=== PATIENT | male | born 1945 | race Caucasian/White ===

== ENCOUNTER → 2019-04-13 | Outpatient (CLI) | payer OTHER | END | disposition home or self-care (01) | LOC: LABWHC1 11:51 | PROVIDERS: ATTEND Orthopaedic Surgery | DX: Z01.812 Encounter for preprocedural laboratory examination (principal) | CPT/HCPCS: 87070 ==

== ENCOUNTER 2019-05-12 12:01 | Observation (INO) | payer OTHER ==
--- NOTE | 2019-05-09 10:25 | HP ---
HISTORY AND PHYSICAL CHIEF COMPLAINT: Right knee pain. HISTORY OF PRESENT ILLNESS: The patient is a 74-year-old retired male who presents with progressive right knee pain over the past 4 years. It has worsened recently. He is having diffuse pain with weightbearing activities and at night. He notes it limits him significantly. He has tried medications along with activity modifications without much relief. PAST MEDICAL HISTORY: Significant for arthritis, hypertension, and hypothyroidism along with polycystic kidney disease. PAST SURGICAL HISTORY: Significant for hernia repair in addition to a left total knee arthroplasty. CURRENT MEDICATIONS: 1. Levothyroxine. 2. Flomax. 3. Lisinopril. ALLERGIES: He has allergies to CARDIZEM. FAMILY HISTORY: Significant for heart disease. SOCIAL HISTORY: Significant for previous tobacco use, however, he quit in 1979. REVIEW OF SYSTEMS: Sixteen-point review of systems otherwise reviewed and is noncontributory. PHYSICAL EXAMINATION: On examination, the patient is approximately 5 feet, 11 inches, 210 pounds of mesomorphic habitus. HEENT exam is nonfocal. NECK: Supple. He has painless passive motion of the right hip. Straight leg raise is negative. Active motion right knee -12 to 125 degrees of flexion. He has tenderness about the medial joint line. He has trace effusion. Collaterals are stable, Davina's negative, Kate's is equivocal. He has genu varum alignment. His distal neurovascular exam appears intact in the right lower extremity. Weightbearing notch lateral and Merchant views of the right knee obtained in the office show severe medial and patellofemoral compartment narrowing. IMPRESSION: 1. Right knee severe medial and patellofemoral compartment osteoarthrosis. 2. Polycystic kidney disease. RECOMMENDATION: I talked to the patient at length regarding his condition and treatment options. At this point, he is quite symptomatic and opts to proceed with surgery. We will plan to proceed with right total knee arthroplasty. Risks and benefits were discussed at length in layman's terms. We will institute DVT prophylaxis postoperatively. MMODL / IJN: [id number] /
[~2019-05-12 12:01] MED LIST: ACETAMINOPHEN TAB 500 MG TAB PO ONE; DEXAMETHASONE SOD PHOSPHATE 10 MG/ML 1 ML VIAL IV ONE; LIDOCAINE 1% 20 ML VIAL (10MG/ML) FOR IV START INTRADERMA PRN; MELOXICAM 7.5 MG TAB PO ONE; MIDAZOLAM 2 MG/2 ML VIAL IV PRN; ONDANSETRON 4 MG/2 ML VIAL IVP ONE; SCOPOLAMINE 1.5MG/72HR PATCH TRANSDERM ONE; TRANEXAMIC ACID 1,000 MG in SODIUM CHLORIDE 0.9% 100 ML IVPB ONE
[2019-05-12] MEDS ORDERED: ROPIVACAINE 246.25 MG, EPINEPHrine 0.5 MG, KETOROLAC 30 MG, cloNIDine HCL/PF 80 MCG, WA... MISCELLANE ONE ×5 (12:25)
[2019-05-12] MEDS: LACTATED RINGERS 1,000 ML IV SCH (12:28)
[2019-05-12] MEDS ORDERED: fentaNYL (PF) 50 MCG/ML 2 ML AMP IV ONE (12:48)
[2019-05-12] MEDS ORDERED: SODIUM CHLORIDE 0.9% 100 ML BAG ONE (13:08)
[2019-05-12] MEDS ORDERED: ePHEDrine SULFATE/0.9% NACL/PF 50 MG/5 ML SYRINGE IV ONE (13:08)
[2019-05-12] MEDS ORDERED: LIDOCAINE 1% INJ 10MG/ML (20 ML MDV) ONE (13:08)
[2019-05-12] MEDS ORDERED: fentaNYL (PF) 50 MCG/ML 2 ML AMP ONE (13:08)
[2019-05-12] MEDS ORDERED: TRANEXAMIC ACID 1,000 MG/10 ML VIAL ONE (13:08)
[2019-05-12] MEDS ORDERED: PROPOFOL 10 MG/ML 20 ML VIAL IV ONE (13:08)
[2019-05-12] MEDS ORDERED: MIDAZOLAM 2 MG/2 ML VIAL ONE (13:08)
[2019-05-12] MEDS ORDERED: ROPIVACAINE 0.2%-NS ON-Q PUMP 1,090 MG, EMPTY PAIN BALL 1 EACH MISCELLANE PRN (13:22)
[2019-05-12] MEDS ORDERED: ceFAZolin 3,000 MG in SODIUM CHLORIDE 0.9% IRRIGATIO 3,000 ML IRRIGATION ONE (13:45)
[2019-05-12] MEDS ORDERED: LACTATED RINGERS 1,000 ML IV ONE (13:57)
--- NOTE | 2019-05-12 14:10 | P.ANPRN ---
Procedure Note - Anesthesia - Nerve Block Performed Right Adductor Canal Infusion Time Out Performed: Yes (1247) Date of Procedure: 05/12/19 Procedure Start Time: 12:47 Procedure Stop Time: 12:54 Location of Patient: PreOp Indication: Acute Post-Operative Pain, Requested by Surgeon Specifically requested for management of pain by : Phan Dunn Sedation Type: Sedate with meaningful contact maintained Preparation: Sterile Prep Position: Supine Catheter Depth at Skin (cm): 7 Catheter: Indwelling Needle Types: Pajunk Needle Gauge: 20 Ultrasound used to visualize needle placement: Yes Ultrasound used to observe medication spread: Yes Injectate: 0.5% Ropivacaine (see comment for volume) (20cc) Blood Aspirated: No Pain Paresthesia on Injection Noted: No Resistance on Injection: Normal Image Stored and Saved: Yes Events: Uneventful and Well Tolerated
[2019-05-12] MEDS ORDERED: HYDROmorphone 0.5 MG/0.5 ML SYRINGE IVP PRN (15:05)
[2019-05-12] MEDS ORDERED: ONDANSETRON 4 MG/2 ML VIAL IVP PRN (15:05)
[2019-05-12] MEDS ORDERED: NALOXONE 0.4 MG/ML 1 ML VIAL IV PRN (15:05)
[2019-05-12] MEDS ORDERED: ACETAMINOPHEN TAB 325 MG TAB PO PRN (15:05)
[2019-05-12] MEDS ORDERED: MAGNESIUM HYDROXIDE 2,400 MG/10 ML CUP PO PRN (15:05)
[2019-05-12] MEDS ORDERED: traMADol 50 MG TAB PO PRN (15:05)
--- NOTE | 2019-05-12 15:33 | P.OP ---
Date of Procedure: 05/12/19 Preoperative Diagnosis: Right knee severe tricompartmental osteoarthrosis Postoperative Diagnosis: Same Procedure(s) Performed: Right total knee are flaccidcementedcruciate retaining Implants: Depuy Attune size 8 cemented femoral component, size 7 cemented tibial component, 9 mm articular surface, 38 mm cemented patellar component. This is a cruciate retaining implant. Anesthesia: regional, local, spinal Surgeon: Phan Dunn Cleaner Assistant #1: Connor Klein Estimated Blood Loss (ml): 50 Pathology: other (Bone fragments) Condition: stable Disposition: PACU Indications for Procedure: The patient's a 74-year-old male who presents with progressive right knee pain secondary to osteoarthrosis despite conservative measures. A discussion of the risks and benefits of operative intervention versus continued conservative me asures was made with patient. He opted to proceed with surgery. Operative risks to include infection, neurovascular injury, development of blood clots, possible fracture, possible component loosening and failure need for subsequent procedures was discussed. Informed consent was obtained. Operative Findings: As below Description of Procedure: The patient was brought to the operating room, and after induction of spinal anesthesia the right lower extremity was prepped and draped in a normal fashion. The tourniquet was inflated to 270 mmHg. A longitudinal incision extending 3 finger breaths above the superior pole of the patella extending to the medial aspect the tibial tubercle was then made. The skin and subcutaneous tissues we re divided sharply. Electrocautery was used for hemostasis. A medial parapatellar arthrotomy was then performed. The medial soft tissues to include the superficial and deep portions of the medial collateral ligament as well as the medial hamstring tendons were elevated subperiosteally. The proximal medial tibia osteophytes were carefully removed. The patella was everted. The knee was flexed. A portion of the retropatellar fat pad was excised sharply. The anterior cruciate ligament was sacrificed. A starting hole was made in the distal femur 1 cm anterior to the posterior cruciate origin. An intramedullary femoral guide was gently inserted planning on 5 valgus distal cut with 9 mm distal resection. The cutting block was pinned in place. The distal cut was then made. The posterior referencing sizing guide was utilized. 3 of external rotation was built into the system and verified off the trans- epicondylar axis and the posterior condyles. I felt size 8 was most appropri ate. The cutting block was pinned in place. The anterior, posterior, and chamfer cuts were then made. The bone fragments were removed. A sulcus cut was then made with the appropriate guide. The trial size 8 femoral component was then placed and was fully seated. There was good anterior to posterior and medial to lateral fit. The distal peg holes were then drilled. The trial component was then removed. Attention was then paid towards preparing the proximal tibia. An extra medullary guide was utilized in line with the tibial shaft and second metatarsal distally. A 7 posterior slope was planned. I planned on 2 mm resection from the medial compartment. The cutting block was pinned in place. The proximal tibial cut was then made. The bone was removed in one fragment. The remnants of the medial and lateral menisci were excised the capsule junction with electrocautery. The tibia sized most appropriately at size 7. The resection seemed inadequate and therefore an additional 4 mm was resected utilizing the cutting block. The posterior osteophytes off the distal femur were carefully removed with a curved osteotome. The trial tibial and femoral components were placed along with a 9 millimeters articular surface. I was able to obtain full flexion and extension with good stability with varus and valgus stress. After several flexion and extension cycles, the tibial rotation was marked with electrocautery in line with the medial one third of the tibial tubercle. Attention was then paid towards preparing the patella. A patella reamer was utilized taking this down to 14 mm of bone stock. A good flush cut was made. The patella sized most appropriately at 38 millimeters. The peg holes were then drilled. The trial component was placed. The knee was taken through a range of motion. I had good patellofemoral tracking with no hands technique. The trial components were then removed. The tibia was prepared in the appropriate rotation with appropriate drill and keel punch. The flexion and extension gaps were checked and felt to be symmetric. The posterior soft tissues were injected with ropivacaine. The bony surfaces were prepared with pulsatile lavage and dried. The deep tibial component was then cemented in place and was fully seated. Excess cement was removed. The femoral component was cemented in place and was fully seated. Again excess cement was removed. The trial 9 millimeters surface was then inserted in the knee was put in full extension. The patella component was cemented in place. After the cement had sufficiently hardened, the knee was again taken through a range of motion. Again there was good stability in flexion and extension with varus and valgus stress. The trial articular surface was then removed. The final articular surface was placed and was impacted. Care was taken to avoid any soft tissue interposition. Pulsatile lavage was again utilized. The tourniquet was deflated with approximately 75 minutes total tourniquet time. There was minimal drainage therefore a deep drain was not placed. The medial parapatellar arthrotomy was then closed with #2 Ethibond suture. The subcutaneous tissues were reapproximated interrupted 2-0 Vicryl sutures. The skin was reapproximated with 3-0 subarticular strata fix suture. Skin tape and adhesive was applied. A sterile dressing was applied. The patient was then awoken from sedation and transferred to recovery room in good condition. Blood loss was estimated at 50 milliliters. No complications were incurred. Sponge and needle counts were correct at the end the case. Tahir LARA assisted during the major components this case to include exposure, bone resection, and implantation.
[2019-05-12] MEDS: HYDROmorphone 0.5 MG/0.5 ML SYRINGE IVP PRN ×2 (15:59→16:09)
[2019-05-12] MEDS ORDERED: diphenhydrAMINE 50 MG/ML 1 ML VIAL IVP ONE (16:00)
--- NOTE | 2019-05-12 16:00 | XR ---
EXAMINATION TYPE: XR knee limited RT DATE OF EXAM: 05/12/2019 COMPARISON: NONE TECHNIQUE: Two views submitted HISTORY: Post op FINDINGS: There is a prosthetic knee in near anatomic alignment. There is soft tissue edema and emphysema. Co rtical thickening suggestive previous trauma involving the fibula with heterotopic ossification. IMPRESSION: 1. Postoperative change. Appears in near-anatomic alignment
--- NOTE | 2019-05-12 17:02 | P.CONS ---
History of Present Illness - Reason for Consult Consult date: 05/12/19 - History of Present Illness The patient is a 74-year-old male with a PMH of osteoarthritis, hypertension, hypothyroidism, and BPH who was admitted to the hospital for scheduled right knee arthroplasty. The patient underwent the procedure uneventfully earlier today and was seen postoperatively on the surgical unit with at the bedside. The patient reported his pain in the right knee currently at a 6 out of 10. He denied any additional complaints. He noted compliance with his home medications. Denied chest pain, shortness of breath, nausea, vomiting, fever, and chills. Review of Systems Pertinent positives and negatives as discussed in HPI, a complete review of systems was performed and all other systems are negative. Past Medical History Past Medical History: Cancer, Hypertension, Osteoarthritis (OA), Renal Disease, Skin Disorder, Thyroid Disorder Additional Past Medical History / Comment(s): autoimmune disease-no sure what, dry skin, polycystic kidney disease, hx skin cancer History of Any Multi-Drug Resistant Organisms: None Reported Past Surgical History: Hernia Repair, Joint Replacement, Tonsillectomy Additional Past Surgical History / Comment(s): skin cancer removed from face, surgery on rt index finger for laceration, left knee replacement, left knee arthroscopy Past Anesthesia/Blood Transfusion Reactions: No Reported Reaction Past Psychological History: No Psychological Hx Reported Smoking Status: Never smoker Past Alcohol Use History: None Reported Additional Past Alcohol Use History / Comment(s): quit smoking around age 32, smoked for a "few years" Past Drug Use History: None Reported - Past Family History Mother Family Medical History: No Reported History Medications and Allergies Home Medications Medication Instructions Recorded Confirmed Type Acetaminophen Tab [Tylenol Tab] 500 mg PO Q6H PRN 05/07/19 05/12/19 History Cyanocobalamin (Vitamin B-12) 1,000 mcg PO DAILY 05/07/19 05/12/19 History [Vitamin B-12] Levothyroxine Sodium [Synthroid] 112 mcg PO DAILY 05/07/19 05/12/19 History Lisinopril 40 mg PO DAILY 05/07/19 05/12/19 History Tamsulosin [Flomax] 0.4 mg PO HS 05/07/19 05/12/19 History Allergies Allergy/AdvReac Type Severity Reaction Status Date / Time diltiazem [From Cardizem] Allergy Rash/Hives Verified 05/12/19 12:14 Physical Exam Vitals: Vital Signs Temp Pulse Resp BP Pulse Ox 05/12/19 16:16 81 16 134/71 92 L 05/12/19 16:01 82 16 136/73 94 L 05/12/19 15:45 86 16 110/58 95 05/12/19 15:29 97.5 F L 92 14 121/60 98 05/12/19 12:26 98.2 F 71 16 159/89 98 Intake and Output 05/12/19 05/12/19 05/12/19 06:59 14:59 22:59 Intake Total 1851 250 Output Total 100 Balance 1851 150 Intake: IV 1851 250 Output: Estimated Blood Loss 100 Other: Weight 95.1 kg 95.1 kg General: non toxic, no distress, appears at stated age, overweight Derm: no unusual rashes/lesions no unusual ecchymoses, warm, dry Head: atraumatic, normocephalic, symmetric Eyes: EOMI, no lid lag, anicteric sclera, pupils equal round reactive to light ENT: Nose and ears atraumatic, no thrush, no pharyngeal erythema Neck: No thyromegaly, no cervical lymphadenopathy, trachea midline, supple Mouth: no lip lesion, mucus membranes moist Cardiovascular: S1S2 reg, no murmur, positive posterior tibial pulse bilateral, no edema, capillary refill less than 2 seconds Lungs: CTA bilateral, no rhonchi, no rales , no accessory muscle use Abdominal: soft, nontender to palpation, no guarding, no appreciable organomegaly, normal bowel sounds Ext: no gross muscle atrophy, muscle strength 5 out of 5 in all 4 extremities except RLE due to pain, no contractures, RLE DORI bandage in place Neuro: CN II-XI grossly intact, light touch intact all 4 extremities, finger to nose within normal limits, Psych: Alert, oriented, appropriate affect Assessment and Plan Plan: HTN -C/w home meds: Lisinopril 40 mg qd Hypothyroidism -Continue with levothyroxine BPH -Continue with home med Flomax Status post right total knee arthroplasty -Management including pain control and DVT prophylaxis as per surgery service
[2019-05-12] MEDS: SENNOSIDES-DOCUSATE SODIUM 1 EACH TAB PO SCH (20:52)
[2019-05-13] MEDS: LACTATED RINGERS 1,000 ML IV SCH (06:54)
[2019-05-13 07:02] LABS: Basophils % (A) 0 %; Eosinophils % (A) 1 %; HCT 40.2 % (39.0-53.0); HGB 12.6 gm/dL (13.0-17.5); Lymphocytes # (A) 0.9 k/uL (1.0-4.8); Lymphocytes % (A) 10 %; MCH 30.3 pg (25.0-35.0); MCHC 31.3 g/dL (31.0-37.0); MCV 96.7 fL (80.0-100.0); Mean Platelet Volume 7.7; Monocytes # (A) 0.5 k/uL (0-1.0); Monocytes % (A) 6 %; Neutrophils # (A) 7.4 k/uL (1.3-7.7); Neutrophils % (A) 83 %; Platelet Count 148 k/uL (150-450); RBC 4.16 m/uL (4.30-5.90); RDW 12.9 % (11.5-15.5); WBC 8.9 k/uL (3.8-10.6)
[2019-05-13] MEDS: HYDROcodone/APAP 5-325MG 1 EACH TAB PO PRN ×3 (08:55→19:49)
[2019-05-13] MEDS ORDERED: RIVAROXABAN 10 MG TAB PO SCH (09:00)
--- NOTE | 2019-05-13 09:59 | P.PN ---
Subjective Progress Note Date: 05/13/19 Patient was seen and examined at the bedside on 05/13. He reported good control of the pain throughout the night though did endorse 4 out of 10 pain at the time of interview. He was able to ambulate to the restroom and has been passing urine. He denied any additional complaints. Denied chest pain, shortness of breath, fever, chills, nausea, vomiting, or abdominal pain. Objective - Vital Signs Vital signs: Vital Signs Temp 97.8 F 05/13/19 07:00 Pulse 84 05/13/19 07:00 Resp 18 05/13/19 07:00 BP 121/70 05/13/19 07:00 Pulse Ox 96 05/13/19 07:00 Intake & Output 05/12/19 05/13/19 05/13/19 18:59 06:59 18:59 Intake Total 2101 250 Output Total 100 Balance 2000 250 Weight 95.1 kg Intake: IV 2100 Intake, IV Titration 250 Amount Lactated Ringers 1,000 ml 100 @ 0 mls/hr IV .[facility] Rx#:[id number] Lactated Ringers 1,000 ml 150 @ 20 mls/hr IV .Q24H COUNT INCLUDES THE [facility] Rx#:[id number] Output: Estimated Blood Loss 100 Other: Voiding Method Toilet - Exam General: Non-toxic, in no acute distress, appears stated age, overweight HEENT: NC/AT, anicteric sclerae, moist conjunctiva, no lid-lag, PERRLA Cardiovascular: S1/S2 wnl, no murmurs, rubs, or gallops Lungs: Clear to auscultation, normal respiratory effort, no accessory muscle use Abdominal: Soft, non-tender, non-distended, no guarding, rebound, or rigidity Skin: Warm, dry Extremities: Right lower extremity Maury bandage in place from ankle to thigh, clean Psychiatric: Alert and oriented to person, place and time, appropriate affect Neuro: CN II-XII grossly intact, Strength 5/5 in all 4 extremities except right lower extremity since postsurgical, Speech intact, Sensation to light touch grossly intact throughout - Labs CBC & Chem 7: 05/13/19 06:12 Labs: Abnormal Lab Results - Last 24 Hours (Table) 05/13/19 Range/Units 06:12 RBC 4.16 L (4.30-5.90) m/uL Hgb 12.6 L (13.0-17.5) gm/dL Plt Count 148 L (150-450) k/uL Lymphocytes # 0.9 L (1.0-4.8) k/uL Assessment and Plan Plan: Normocytic anemia -As expected following surgery Mild thrombocytopenia -Likely due to acute stress HTN -C/w home meds: Lisinopril 40 mg qd Hypothyroidism -Continue with levothyroxine BPH -Continue with home med Flomax Status post right total knee arthroplasty -Management including pain control and DVT prophylaxis as per surgery service
--- NOTE | 2019-05-13 10:35 | P.PN ---
Subjective Progress Note Date: 05/13/19 Principal diagnosis: Status post right total knee arthroplasty patient evaluated bedside, he is resting comfortably. She's ambulated well with physical therapy. His pain is well-controlled. Currently denies any chest pain, shortness of breath, fever or chills, stomach discomfort. Objective - Vital Signs Vital signs: Vital Signs Temp 97.8 F 05/13/19 07:00 Pulse 84 05/13/19 07:00 Resp 18 05/13/19 07:00 BP 121/70 05/13/19 07:00 Pulse Ox 96 05/13/19 07:00 Intake & Output 05/12/19 05/13/19 05/13/19 18:59 06:59 18:59 Intake Total 2101 250 Output Total 100 Balance 2000 250 Weight 95.1 kg Intake: IV 2100 Intake, IV Titration 250 Amount Lactated Ringers 1,000 ml 100 @ 0 mls/hr IV .[facility] Rx#:[id number] Lactated Ringers 1,000 ml 150 @ 20 mls/hr IV .Q24H [facility] Rx#:[id number] Output: Estimated Blood Loss 100 Other: Voiding Method Toilet - Exam Right lower extremity: Incision is clean, dry, and intact. The exofin fusion tape is in good condition. There is minimal soft tissue swelling and ecchymosis surrounding the medial and lateral aspects of the incision. Calf is soft, no tenderness with palpation. Plantar flexion, dorsiflexion, EHL, FHL are intact. Sensory exam to light touch throughout the extremity is intact, dorsal pedis pulses 2+. - Labs CBC & Chem 7: 05/13/19 06:12 Labs: Abnormal Lab Results - Last 24 Hours (Table) 05/13/19 Range/Units 06:12 RBC 4.16 L (4.30-5.90) m/uL Hgb 12.6 L (13.0-17.5) gm/dL Plt Count 148 L (150-450) k/uL Lymphocytes # 0.9 L (1.0-4.8) k/uL Assessment and Plan Plan: Assessment: Postop day #1 status post right total knee arthroplasty Plan: Pain control, plan for discharge on oral medication GI and DVT prophylaxis, Eliquis 2.5mg bid Wound care instructions discussed Icing and elevating techniques along with home exercises discussed Home therapy and nursing after discharge Medical recommendations Discharge planning: Discharge home today Time with Patient: Less than 30
--- NOTE | 2019-05-13 10:37 | P.DS ---
Providers Date of admission: 05/12/2019 Expected date of discharge: 05/13/19 Attending physician: hPan Dunn Consults: 05/12/19 15:07 Consult Physician Routine Consulting Provider: Vaishnavi Rome Consult Reason/Comments: Medical Management Do you want consulting provider notified?: Yes Primary care physician: [facility] Hospital Course: Date of admission: 05/12/2019 Date of discharge: 05/13/2019 Admission diagnosis: Status post right total knee arthroplasty Discharge diagnosis: Same Attending physician: Dr. Dunn Surgical procedures: Right total knee arthroplasty Brief history: Patient is a 74-year-old male with a history of progressive primary right knee osteoarthritis. At this point patient has failed conservative treatment measures and has opted to proceed with a elective right total knee arthroplasty. Hospital course: Details of patient's surgery can be found in operative report. Patient tolerated the procedure well and was subsequently transported to orthopedic floor. Patient's orthopeidc and medical care was provided daily. Patient had daily laboratory tests performed for evaluation of overall blood counts. Patient had daily physical therapy to include strengthening range of motion as well as education with walker ambulation. Patient had daily CPM usage as part of their physical therapy program. Patient was treated with Xarelto for their postoperative DVT prophylaxis during their inpatient stay. Patient was noted to have a relatively uneventful postoperative course. Patient reported satisfactory pain control with oral pain medications by postoperative day 0. Patient showed satisfactory progress with physical therapy. Patient moved steadily through the program and had no difficulty meeting the goals by postoperative day 1. Given patient's otherwise satisfactory course and having met physical therapy goals, plan is to discharge patient home on postoperative day 1. Discharge condition/disposition: Patient will be discharged home in stable condition. Discharge medications: Instructions are given on resumption of patient's normal daily medications per primary care recommendation, in addition patient will be prescribed Vidor 5 mg/325 mg, Colace 100 mg, Eliquis 2.5mg. Discharge instructions: 1. Wound care and infection precautions, keep incision dry and covered while showering, no lotions, creams, moisturizers. No soaking, tubs, pools, hottubs. Do not scrub over the incision. 2. Weight-bear as tolerated with walker / cane until follow-up. 3. Ice and elevate when necessary. Do not exceed 20 minutes per hour with ice pack. 4. Utilize compression sleeve until seen at first follow up appointment. 5. Visiting nursing care. 6. Home physical therapy. 7. Pain meds and anticoagulants per prescription. 8. Pain medication has potential to cause constipation. Increase oral fluid and fiber intake. Contact primary care provider if you have not had a bowel movement within 48 hours after discharge 9. No anti-inflammatory medication until discussed at first post operative visit, this including Motrin, Aleve, Mobic, Diclofenac. 10. Follow up in office at 2 weeks postop with Tahir Klein PA-C 11. Follow up with your primary care doctor 7-10 days after discharge. 12. Contact [facility] with any questions, . Procedures: Right total knee arthroplasty Patient Condition at Discharge: Good Plan - Discharge Summary Discharge Rx Participant: No New Discharge Prescriptions: New Docusate [Colace] 100 mg PO DAILY #30 capsule Apixaban [Eliquis] 2.5 mg PO BID #60 tab Hydrocodone/Acetaminophen [Vidor 5-325] 1 - 2 each PO Q6HR PRN #40 tab PRN Reason: Pain No Action Tamsulosin [Flomax] 0.4 mg PO HS Acetaminophen Tab [Tylenol Tab] 500 mg PO Q6H PRN PRN Reason: Pain Lisinopril 40 mg PO DAILY Levothyroxine Sodium [Synthroid] 112 mcg PO DAILY Cyanocobalamin (Vitamin B-12) [Vitamin B-12] 1,000 mcg PO DAILY Discharge Medication List Acetaminophen Tab [Tylenol Tab] 500 mg PO Q6H PRN 05/07/19 [History] Cyanocobalamin (Vitamin B-12) [Vitamin B-12] 1,000 mcg PO DAILY 05/07/19 [History] Levothyroxine Sodium [Synthroid] 112 mcg PO DAILY 05/07/19 [History] Lisinopril 40 mg PO DAILY 05/07/19 [History] Tamsulosin [Flomax] 0.4 mg PO HS 05/07/19 [History] Apixaban [Eliquis] 2.5 mg PO BID #60 tab 05/13/19 [Rx] Docusate [Colace] 100 mg PO DAILY #30 capsule 05/13/19 [Rx] Hydrocodone/Acetaminophen [Vidor 5-325] 1 - 2 each PO Q6HR PRN #40 tab 05/13/19 [Rx] Follow up Appointment(s)/Referral(s): Connor Klein, PAC [PHYSICIAN [employer]] - 05/27/19 2:50 pm [facility] [Primary Care Provider] - 1 Week Activity/Diet/Wound Care/Special Instructions: Orthopedic Discharge Instructions: 1. Wound care and infection precautions, keep incision dry and covered while showering, no lotions, creams, moisturizers. No soaking, pools, hot tubs. Do not scrub over incision. 2. Weight-bear as tolerated with walker / cane until follow-up. 3. Ice and elevate when necessary. Do not exceed 20 minutes per hour with ice pack. 4. Utilize compression sleeve until seen at first follow up appointment. 5. Pain meds and anticoagulants per prescription. 6. Pain medication has potential to cause constipation. Increase oral fluid and fiber intake. Contact primary care provider if you have not had a bowel movement within 48 hours after discharge. 7. No anti-inflammatory medication until discussed at first post operative visit, this including Motrin, Aleve, Mobic, Diclofenac. 8. Follow up in office at 2 weeks postop with Tahir Klein PA-C 9. Follow up with your primary care doctor 7-10 days after discharge. 10. Contact [facility] with any questions, . Discharge Disposition: HOME WITH HOME HEALTH SERVICES
--- NOTE | 2019-05-13 13:11 | P.PN ---
Progress Note - Text 05/13 642am 74-year-old male status post total knee replacement by Dr. Dunn. Patient has an On-Q pump for postop pain control with solution running at 8 mL an hour, patient has a VAS of 0 at rest. Plan to continue On-Q pump infusion at 8 mL an hour
[2019-05-13 14:13] VITALS: BMI 29.2
--- NOTE | 2019-05-13 16:37 | P.PN ---
Progress Note - Text Anesthesia. 1624. Patient is status post right TKR on 05/12/2019 with a right adductor canal catheter placed for postoperative pain relief. The patient had been started on Xarelto 10 mg by mouth daily for DVT prophylaxis with his first dose given at approximately 6 AM this morning. While preparing the patient for discharge home this afternoon the nursing staff noticed that the adductor canal catheter dressing had filled with blood. Because of the possibility of accidental femoral artery puncture it was felt that it would be best to delay the patient's departure until tomorrow morning so that the adductor canal catheter could be removed under ultrasound view and the possible development of a hematoma post removal could also be ruled out with an ultrasound check approximately an hour after removal. The patient will also be monitored by nursing overnight and anesthesia will check on him in the morning to ensure that no intra-thigh bleeding has occurred. Finally Xarelto has been discontinued for now and if there is no indication of further bleeding in the morning will be re-instituted prior to the patient's discharge.
--- NOTE | 2019-05-13 17:24 | P.PN ---
Progress Note - Text Procedure note anesthesia. Removal of adductor canal catheter under ultrasound guidance. The catheter was flushed with 2 mL of sterile saline and then aspirated without any blood return. The catheter tip and its course to the adductor canal through the sartorius muscle was visualized with ultrasound and images recorded. There were no obvious areas of hematoma either around the catheter course or around the femoral artery. The catheter was then removed and pressure applied to the catheter insertion site and its course to the adductor canal. Approximately one half hour later ultrasound examination revealed no hematoma formation around either the adductor canal or the former course of the catheter.
[2019-05-13] MEDS: SENNOSIDES-DOCUSATE SODIUM 1 EACH TAB PO SCH (19:48)
[2019-05-14] MEDS: HYDROcodone/APAP 5-325MG 1 EACH TAB PO PRN ×2 (04:21→11:22)
[2019-05-14 07:50] VITALS: BP 149/82; PULSE 68; RESP 18; TEMP 98.4
[2019-05-14 08:37] LABS: HCT 39.6 % (39.0-53.0); MCH 31.4 pg (25.0-35.0); MCHC 32.8 g/dL (31.0-37.0); MCV 95.8 fL (80.0-100.0); Mean Platelet Volume 8.1; Platelet Count 134 k/uL (150-450); RBC 4.13 m/uL (4.30-5.90); RDW 12.8 % (11.5-15.5); WBC 6.6 k/uL (3.8-10.6)
--- NOTE | 2019-05-14 08:46 | P.PN ---
Progress Note - Text 05/14 655am 74-year-old male status post total knee replacement by Dr. Dunn. Patient had an On-Q pump for postop pain control , patient was supposed with discharge yesterday but Dr. Bach was called to the floor to evaluate the On-Q pump catheter site. Patient has received Zaroxolyn the morning and subsequently had bleeding from the catheter site. Patient was brought to the recovery room and Dr. Bach DC the catheter and rescan the site to ensure that there was no hematoma. I saw the patient this morning and evaluated the catheter site. There is no swelling there is no hematoma and there was no inflammation noted. I recommended the patient can be discharged home today
--- NOTE | 2019-05-14 20:01 | P.PN ---
Subjective Progress Note Date: 05/14/19 (delayed charting seen at 0945) Principal diagnosis: knee pain Patient is 74-year-old male with a past medical history of hypertension, hypothyroidism, and BPH who presented to the hospital for an elective right total knee arthroplasty. He was set to be discharged on 05/13/19 but had some bleeding into his adductor canal block. His block was pulled pressure was applied. He was receiving by anesthesia on the morning of 05/14/19 and no hematoma or further bleeding was noted. Hemoglobin stable discharged home, Will resume eliquis in 48 hours. Patient seen and examined at bedside. No chest pain, shortness of breath, or dizziness. Objective - Vital Signs Vital signs: Vital Signs Temp 98.4 F 05/14/19 07:23 Pulse 68 05/14/19 07:23 Resp 18 05/14/19 07:23 BP 149/82 05/14/19 07:23 Pulse Ox 98 05/14/19 10:53 Intake & Output 05/14/19 05/14/19 05/15/19 06:59 18:59 06:59 Intake Total 240 Output Total 200 Balance 40 Intake: Oral 240 Output: Urine 200 Other: # Voids 1 - Exam General: non toxic, no distress, appears at stated age Derm: Some bruising around the right upper thigh, dressing in place without serosanguineous drainage. warm, dry Head: atraumatic, normocephalic, symmetric Eyes: EOMI, no lid lag, anicteric sclera Mouth: no lip lesion, mucus membranes moist Cardiovascular: S1S2 reg, no murmur, positive posterior tibial pulse bilateral, Lungs: CTA bilateral, no rhonchi, no rales , no accessory muscle use Abdominal: soft, nontender to palpation, no guarding, no appreciable organomegaly Ext: no gross muscle atrophy, no edema, no contractures Neuro: CN II-XI grossly intact, no focal neuro deficits Psych: Alert, oriented, appropriate affect - Labs CBC & Chem 7: 05/14/19 08:18 Labs: Abnormal Lab Results - Last 24 Hours (Table) 05/14/19 Range/Units 08:18 RBC 4.13 L (4.30-5.90) m/uL Plt Count 134 L (150-450) k/uL Assessment and Plan Assessment: Patient is a 74-year-old male status post right total knee arthroplasty Bruising secondary to placement of the adductor canal block -Recommending hold Eliquis 48 hours and then may resume -Recommend follow-up with PCP in 2-3 days. Thrombocytopenia -Likely reactive in anticipated to improve Hypertension -Continue with lisinopril Hypothyroidism -Continue with levothyroxine BPH -Resume Flomax Acute blood loss anemia as anticipated outcome of surgery, resolved Medically optimized for discharge
== END 2019-05-14 13:22 | disposition home or self-care (01) ==
LOC: OR 12:01 → 4SSUR 15:20 → OR 05-14 08:38 → 4SSUR 05-14 08:38
PROVIDERS: ADMIT Orthopaedic Surgery; ATTEND Orthopaedic Surgery
DX: M17.11 Unilateral primary osteoarthritis, right knee (principal); D62 Acute posthemorrhagic anemia; S70.11XA Contusion of right thigh, initial encounter; L76.22 Postprocedural hemorrhage of skin and subcutaneous tissue following other procedure; I10 Essential (primary) hypertension; E03.9 Hypothyroidism, unspecified; N40.0 Benign prostatic hyperplasia without lower urinary tract symptoms; Q61.3 Polycystic kidney, unspecified; D69.6 Thrombocytopenia, unspecified; E66.3 Overweight; Z68.29 Body mass index [BMI] 29.0-29.9, adult; Z88.8 Allergy status to other drugs, medicaments and biological substances; Z79.890 Hormone replacement therapy; Z79.899 Other long term (current) drug therapy; Z96.652 Presence of left artificial knee joint; Z98.890 Other specified postprocedural states; Z90.89 Acquired absence of other organs; Z82.49 Family history of ischemic heart disease and other diseases of the circulatory system; Z87.891 Personal history of nicotine dependence; Z85.828 Personal history of other malignant neoplasm of skin; M35.9 Systemic involvement of connective tissue, unspecified; L98.8 Other specified disorders of the skin and subcutaneous tissue; Y83.8 Other surgical procedures as the cause of abnormal reaction of the patient, or of later complication, without mention of misadventure at the time of the procedure
CPT/HCPCS: 27447; 94760; 97161; 64448; 76942; 85025; 85027; 88300; 73560; G0378; C1713; C1776; J2250; J0171; J1200; J1100; J0690 ×3; J2405; J2001; J3010; J1885; J2795 ×2; J2704; J0735; J1170

== ENCOUNTER 2019-09-09 14:53 | Emergency (ER) | payer OTHER ==
[2019-09-09 15:05] VITALS: TEMP 98
--- NOTE | 2019-09-09 15:50 | ED ---
General Adult HPI - General Chief complaint: Shortness of Breath Stated complaint: MAYRA/headache Time Seen by Provider: 09/09/19 15:00 Source: patient, RN notes reviewed, old records reviewed Mode of arrival: ambulatory Limitations: no limitations - History of Present Illness Initial comments: This is a 74-year-old male who presents emergency department today complaining he has been short of breath for at least 5 weeks. Patient states he did have knee surgery on his right knee back in April but he only started having shortness of breath about 4-5 weeks ago. Patient denies any fever chills or cough. He denies any chest pain palpitations or soreness in the chest per patient denies any abdominal pain. Patient states he does get occasional nausea but has not vomited. Patient denies any diarrhea. Patient denies any abdominal pain. Patient denies any swelling to the leg or calf tenderness. - Related Data Home Medications Medication Instructions Recorded Confirmed Levothyroxine Sodium [Synthroid] 112 mcg PO DAILY 05/07/19 09/09/19 Aspirin [Adult Low Dose Aspirin EC] 81 mg PO DAILY 09/09/19 09/09/19 Lisinopril-Hctz 20-12.5 mg 2 tab PO DAILY 09/09/19 09/09/19 [Zestoretic 20-12.5] Vitamin C (Unknown Strength) 1 tab PO DAILY 09/09/19 09/09/19 Allergies Allergy/AdvReac Type Severity Reaction Status Date / Time diltiazem [From Cardizem] Allergy Rash/Hives Verified 09/09/19 15:58 Review of Systems ROS Statement: Those systems with pertinent positive or pertinent negative responses have been documented in the HPI. ROS Other: All systems not noted in ROS Statement are negative. Past Medical History Past Medical History: Cancer, Hypertension, Osteoarthritis (OA), Renal Disease, Skin Disorder, Thyroid Disorder Additional Past Medical History / Comment(s): autoimmune disease-no sure what, dry skin, polycystic kidney disease, hx skin cancer History of Any Multi-Drug Resistant Organisms: None Reported Past Surgical History: Hernia Repair, Joint Replacement, Tonsillectomy Additional Past Surgical History / Comment(s): skin cancer removed from face, surgery on rt index finger for laceration, left knee replacement, left knee arthroscopy Past Anesthesia/Blood Transfusion Reactions: No Reported Reaction Past Psychological History: No Psychological Hx Reported Smoking Status: Never smoker Past Alcohol Use History: None Reported Past Drug Use History: None Reported - Past Family History Mother Family Medical History: No Reported History General Exam - General Exam Comments Initial Comments: GENERAL: Patient is well-developed and well-nourished. Patient is nontoxic and well- hydrated and is in mild distress. ENT: Neck is soft and supple. No significant lymphadenopathy is noted. Oropharynx is clear. Moist mucous membranes. Neck has full range of motion without eliciting any pain. EYES: The sclera were anicteric and conjunctiva were pink and moist. Extraocular movements were intact and pupils were equal round and reactive to light. Eyelids were unremarkable. PULMONARY: Unlabored respirations. Good breath sounds bilaterally. No audible rales rhonchi or wheezing was noted. CARDIOVASCULAR: There is a regular rate and rhythm without any murmurs gallops or rubs. ABDOMEN: Soft and nontender with normal bowel sounds. SKIN: Skin is clear with no lesions or rashes and otherwise unremarkable. NEUROLOGIC: Patient is alert and oriented x3. Cranial nerves II through XII are grossly intact. Motor and sensory are also intact. Normal speech, volume and content. Symmetrical smile. MUSCULOSKELETAL: Normal extremities with adequate strength and full range of motion. No lower extremity swelling or edema. No calf tenderness. LYMPHATICS: No significant lymphadenopathy is noted PSYCHIATRIC: Normal psychiatric evaluation. Limitations: no limitations Course Vital Signs 09/09/19 09/09/19 09/09/19 15:01 16:00 16:30 Temperature 98.0 F Pulse Rate 80 71 67 Respiratory 18 14 14 Rate Blood Pressure 117/84 119/82 111/76 O2 Sat by Pulse 95 96 98 Oximetry 09/09/19 09/09/19 17:00 17:30 Temperature Pulse Rate 64 62 Respiratory 16 16 Rate Blood Pressure 126/81 111/72 O2 Sat by Pulse 97 99 Oximetry Medical Decision Making - Medical Decision Making EKG shows normal sinus rhythm at 72 bpm TX interval 148 QRSs 88 QT interval 388 QTC is 424. Patient's EKG shows no ST segment elevation or depression. CT of the chest shows no PE no pneumonia and no congestive heart failure. One pack and saw the patient and gave him his results he at this time had no shortness of breath and no complaints at all he states may be she is out of shape not exercising at all because of this he surgery in April. Patient agrees he'll follow-up with his primary medical care doctor. I also asked him when this all started because the nurse that he stated it started early May and he told me it started about 4-5 weeks ago. Patient at this time stated it did start in early May. - Lab Data Result diagrams: 09/09/19 15:44 09/09/19 15:44 Lab Results 09/09/19 09/09/19 09/09/19 Range/Units 15:44 15:44 15:44 WBC 6.8 (3.8-10.6) k/uL RBC 5.71 (4.30-5.90) m/uL Hgb 17.4 (13.0-17.5) gm/dL Hct 53.3 H (39.0-53.0) % MCV 93.4 (80.0-100.0) fL MCH 30.4 (25.0-35.0) pg MCHC 32.6 (31.0-37.0) g/dL RDW 14.1 (11.5-15.5) % Plt Count 206 (150-450) k/uL Neutrophils % 67 % Lymphocytes % 18 % Monocytes % 7 % Eosinophils % 5 % Basophils % 1 % Neutrophils # 4.5 (1.3-7.7) k/uL Lymphocytes # 1.2 (1.0-4.8) k/uL Monocytes # 0.5 (0-1.0) k/uL Eosinophils # 0.4 (0-0.7) k/uL Basophils # 0.1 (0-0.2) k/uL PT 10.3 (9.0-12.0) sec INR 1.0 (<1.2) APTT 25.1 (22.0-30.0) sec D-Dimer 0.96 H (<0.60) mg/L FEU Sodium 141 (137-145) mmol/L Potassium 4.2 (3.5-5.1) mmol/L Chloride 106 (98-107) mmol/L Carbon Dioxide 23 (22-30) mmol/L Anion Gap 12 mmol/L BUN 32 H (9-20) mg/dL Creatinine 1.37 H (0.66-1.25) mg/dL Est GFR (CKD-EPI)AfAm 59 (>60 ml/min/1.73 sqM) Est GFR (CKD-EPI)NonAf 51 (>60 ml/min/1.73 sqM) Glucose 131 H (74-99) mg/dL Plasma Lactic Acid Javier (0.7-2.0) mmol/L Calcium 9.8 (8.4-10.2) mg/dL Magnesium 2.3 (1.6-2.3) mg/dL Total Bilirubin 0.7 (0.2-1.3) mg/dL AST 24 (17-59) U/L ALT 14 (4-49) U/L Alkaline Phosphatase 87 (38-126) U/L Troponin I (0.000-0.034) ng/mL NT-Pro-B Natriuret Pep pg/mL Total Protein 7.2 (6.3-8.2) g/dL Albumin 4.5 (3.5-5.0) g/dL 09/09/19 09/09/19 09/09/19 Range/Units 15:44 15:44 16:10 WBC (3.8-10.6) k/uL RBC (4.30-5.90) m/uL Hgb (13.0-17.5) gm/dL Hct (39.0-53.0) % MCV (80.0-100.0) fL MCH (25.0-35.0) pg MCHC (31.0-37.0) g/dL RDW (11.5-15.5) % Plt Count (150-450) k/uL Neutrophils % % Lymphocytes % % Monocytes % % Eosinophils % % Basophils % % Neutrophils # (1.3-7.7) k/uL Lymphocytes # (1.0-4.8) k/uL Monocytes # (0-1.0) k/uL Eosinophils # (0-0.7) k/uL Basophils # (0-0.2) k/uL PT (9.0-12.0) sec INR (<1.2) APTT (22.0-30.0) sec D-Dimer (<0.60) mg/L FEU Sodium (137-145) mmol/L Potassium (3.5-5.1) mmol/L Chloride (98-107) mmol/L Carbon Dioxide (22-30) mmol/L Anion Gap mmol/L BUN (9-20) mg/dL Creatinine (0.66-1.25) mg/dL Est GFR (CKD-EPI)AfAm (>60 ml/min/1.73 sqM) Est GFR (CKD-EPI)NonAf (>60 ml/min/1.73 sqM) Glucose (74-99) mg/dL Plasma Lactic Acid Javier 1.2 (0.7-2.0) mmol/L Calcium (8.4-10.2) mg/dL Magnesium (1.6-2.3) mg/dL Total Bilirubin (0.2-1.3) mg/dL AST (17-59) U/L ALT (4-49) U/L Alkaline Phosphatase (38-126) U/L Troponin I 0.013 (0.000-0.034) ng/mL NT-Pro-B Natriuret Pep 188 pg/mL Total Protein (6.3-8.2) g/dL Albumin (3.5-5.0) g/dL Disposition Clinical Impression: Chronic dyspnea Disposition: HOME SELF-CARE Instructions (If sedation given, give patient instructions): Dyspnea (ED) Is patient prescribed a controlled substance at d/c from ED?: No Referrals: [facility]inic [Primary Care Provider] - 1-2 days Time of Disposition: 18:49
[2019-09-09 15:59] LABS: Basophils # (A) 0.1 k/uL (0-0.2); Basophils % (A) 1 %; Eosinophils # (A) 0.4 k/uL (0-0.7); Eosinophils % (A) 5 %; HCT 53.3 % (39.0-53.0); HGB 17.4 gm/dL (13.0-17.5); Lymphocytes # (A) 1.2 k/uL (1.0-4.8); Lymphocytes % (A) 18 %; MCH 30.4 pg (25.0-35.0); MCHC 32.6 g/dL (31.0-37.0); MCV 93.4 fL (80.0-100.0); Mean Platelet Volume 7.7; Monocytes # (A) 0.5 k/uL (0-1.0); Monocytes % (A) 7 %; Neutrophils # (A) 4.5 k/uL (1.3-7.7); Neutrophils % (A) 67 %; Platelet Count 206 k/uL (150-450); RBC 5.71 m/uL (4.30-5.90); RDW 14.1 % (11.5-15.5); WBC 6.8 k/uL (3.8-10.6)
--- NOTE | 2019-09-09 16:15 | XR ---
EXAMINATION TYPE: XR chest 2V DATE OF EXAM: 09/09/2019 COMPARISON: NONE HISTORY: Shortness of breath and headache. TECHNIQUE: Frontal and lateral views of the chest are obtained. FINDINGS: There is chronic parenchymal changes bilaterally without suspicious focal air space opacit y, pleural effusion, or pneumothorax seen. The cardiac silhouette size is within normal limits. Dege nerative change bilateral shoulders and spine is seen. IMPRESSION: Chronic changes without acute pulmonary process.
[2019-09-09 16:16] LABS: Partial Thromboplastin Time 25.1 sec (22.0-30.0); Prothrombin Time 10.3 sec (9.0-12.0)
[2019-09-09 16:17] LABS: Albumin 4.5 g/dL (3.5-5.0); Calcium 9.8 mg/dL (8.4-10.2); Magnesium 2.3 mg/dL (1.6-2.3); Potassium 4.2 mmol/L (3.5-5.1); Total Bilirubin 0.7 mg/dL (0.2-1.3); Total Protein 7.2 g/dL (6.3-8.2)
[2019-09-09 16:19] LABS: D-Dimer 0.96 mg/L FEU (<0.60)
--- NOTE | 2019-09-09 18:37 | CT ---
EXAMINATION TYPE: CT chest angio for PE DATE OF EXAM: 09/09/2019 COMPARISON: None HISTORY: SOB, elevated d-dimer CT DLP: 481.6 mGycm CONTRAST: CT chest with contrast and 3D reconstruction with MIP imaging is performed with IV Contrast, patient injected with 89cc mL of Isovue 370. Contrast-enhanced CT of the chest was performed through the course of the pulmonary arteries with jose antonio g and mediastinal window settings submitted. 3D reconstruction with MIP imaging was also performed. PULMONARY ARTERIES: The pulmonary arteries and their major tributaries are patent. I do not see toby dence for sizable filling defect to suggest pulmonary embolic process. LUNGS: The lungs are clear and free of infiltrate. No evidence for atelectasis. No pulmonary nodule or mass is detected. No pleural effusion. MEDIASTINUM: Thoracic aorta is of normal caliber,however, evaluation is limited given timing of the contrast bolus. If there is concern for thoracic aortic pathology consider MEÑO. Correlate clinicall y . The heart is not enlarged. No evidence for mediastinal mass. No mediastinal lymph nodes greater than 1cm. HILAR STRUCTURES: No evidence for mass. No hilar lymph nodes greater than 1 cm. UPPER ABDOMEN: Bilateral renal cystic change. IMPRESSION: 1. No evidence for Pulmonary embolism at this time.
[2019-09-09 18:58] VITALS: BP 122/80; PULSE 65; RESP 18
== END 2019-09-09 19:02 | disposition home or self-care (01) ==
LOC: EC 14:53
DX: R06.00 Dyspnea, unspecified (principal); R06.02 Shortness of breath; R51 Headache; I10 Essential (primary) hypertension; E07.9 Disorder of thyroid, unspecified; M19.90 Unspecified osteoarthritis, unspecified site; Z79.82 Long term (current) use of aspirin; Z79.890 Hormone replacement therapy; Z79.899 Other long term (current) drug therapy; Z85.828 Personal history of other malignant neoplasm of skin; Z96.652 Presence of left artificial knee joint
CPT/HCPCS: 36415; 93005; 85379; 83880; 80053; 83605; 83735; 84484; 85025; 85610; 85730; 87635; 71046; 71275; 99285; Q9967